=== PATIENT | female | born 1980 | race Caucasian/White ===

== ENCOUNTER 2020-04-10 17:34 | Emergency (ER) | payer OTHER, SELFPAY ==
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
[2020-04-10 17:40] VITALS: BP 128/80; PULSE 80; RESP 17; TEMP 37; O2SAT 98
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
[2020-04-10 19:35] VITALS: BP 138/75; PULSE 87; RESP 18; O2SAT 97
== END 2020-04-10 19:38 | disposition home or self-care (01) ==
PROVIDERS: Emergency Provider Emergency Medicine; PCP Internal Medicine
DX: S09.90XA Unspecified injury of head, initial encounter (principal); Y04.8XXA Assault by other bodily force, initial encounter
CPT/HCPCS: 70450; 72125; 99282; 99284

== ENCOUNTER 2021-06-15 08:32 | Outpatient (CLI) | payer MEDICAID, SELFPAY | END 2021-06-15 08:33 | disposition home or self-care (01) | LOC: CHSLAB 08:36 | PROVIDERS: PCP Internal Medicine; Visit Provider Internal Medicine Cardiovascular Disease | DX: R07.9 Chest pain, unspecified (principal) | CPT/HCPCS: 99199 ==

== ENCOUNTER 2021-09-22 08:26 | Outpatient (CLI) | payer BC, SELFPAY ==
--- NOTE | 2021-09-22 08:39 | EST_ITS ---
Patient Info Name: Yulia King Age: 41 years : 1980 Gender: Female Ht: 67 in Wt: 145 lbs BSA: 1.77 m2 HR: 47 bpm BP: 97 / 50 mmHg Heart Rhythm: Sinus Rhythm Technical Quality: Good Exam Date: 09/22/2021 9:07 AM Exam Location: [facility] Pulmonary Patient Status: Outpatient Admit Date: 09/22/2021 Staff Ordering Physician: Darren Madrid DO Leather Scrubber: Adelaida Andersen RDCS Attending Provider: DR. MADRID Referring Physician: Rodolfo JOHNSON; Exam Type: CA stress echo Study Info Indications - cp Treadmill exercise stress echocardiogram is performed. Summary 1. 1. Negative Hermes exercise stress test for ischemic ST changes by ECG criteria. 2. 2. Good functional capacity, achieving 12 METs of workload. 3. 3. Appropriate HR response to exercise. 4. 4. Appropriate HR recovery at 1 minute post exercise. 5. 5. Negative stress echocardiogram for ischemia by wall motion analysis. 6. 6. Patient informed of the above results. Stress Echo Findings Left Ventricle Appropriate increase in LV endocardial thickening with systole. Appropriate augmentation of contractility with systole. No wall motion abnormality. Left Ventricle Normal LV systolic function, no wall motion abnormality. Protocol: Hermes Stress ECG Details Stage: REST Duration (min): 4 min : 30 sec Speed (mph): 0.0 Grade (%): 0 HR (bpm): 53 SBP (mmHg): 97 DBP (mmHg): 50 METS: --- Stage: REST Duration (min): 13 min : 15 sec Speed (mph): 0.0 Grade (%): 0 HR (bpm): 53 SBP (mmHg): 97 DBP (mmHg): 50 METS: --- Stage: STAGE 1 Duration (min): 1 min : 0 sec Speed (mph): 1.7 Grade (%): 10 HR (bpm): 79 SBP (mmHg): 97 DBP (mmHg): 50 METS: --- Stage: STAGE 1 Duration (min): 2 min : 0 sec Speed (mph): 1.7 Grade (%): 10 HR (bpm): 93 SBP (mmHg): 97 DBP (mmHg): 50 METS: --- Stage: STAGE 1 Duration (min): 3 min : 0 sec Speed (mph): 1.7 Grade (%): 10 HR (bpm): 94 SBP (mmHg): 114 DBP (mmHg): 52 METS: --- Stage: STAGE 2 Duration (min): 1 min : 0 sec Speed (mph): 2.5 Grade (%): 12 HR (bpm): 101 SBP (mmHg): 114 DBP (mmHg): 52 METS: --- Stage: STAGE 2 Duration (min): 2 min : 0 sec Speed (mph): 2.5 Grade (%): 12 HR (bpm): 107 SBP (mmHg): 110 DBP (mmHg): 50 METS: --- Stage: STAGE 2 Duration (min): 3 min : 0 sec Speed (mph): 2.5 Grade (%): 12 HR (bpm): 112 SBP (mmHg): 110 DBP (mmHg): 50 METS: --- Stage: STAGE 3 Duration (min): 1 min : 0 sec Speed (mph): 3.4 Grade (%): 14 HR (bpm): 117 SBP (mmHg): 143 DBP (mmHg): 54 METS: --- Stage: STAGE 3 Duration (min): 2 min : 0 sec Speed (mph): 3.4 Grade (%): 14 HR (bpm): 124 SBP (mmHg): 143 DBP (mmHg): 54 METS: --- Stage: STAGE 3 Duration (min): 3 min : 0 sec Speed (mph): 3.4 Grade (%): 14 HR (bpm): 122 SB
== END 2021-09-22 08:27 | disposition home or self-care (01) ==
PROVIDERS: PCP Internal Medicine; Visit Provider Internal Medicine Cardiovascular Disease
DX: R07.9 Chest pain, unspecified (principal)
CPT/HCPCS: 93351